=== PATIENT | female | born 1960 | race Caucasian/White ===

== ENCOUNTER 2019-01-09 10:41 | Observation (INO) ==
[2019-01-09] MEDS ORDERED: FAMOTIDINE 20 MG/2 ML VIAL IV STA (11:12)
[2019-01-09] MEDS ORDERED: DICYCLOMINE 20 MG/2 ML AMP IM ONE (11:12)
[2019-01-09] MEDS ORDERED: SODIUM CHLORIDE 0.9% 1,000 ML IV STA (11:12)
[2019-01-09] MEDS ORDERED: ONDANSETRON 4 MG/2 ML VIAL IV STA (11:12)
[2019-01-09] MEDS ORDERED: METOCLOPRAMIDE 10 MG/2 ML VIAL IV STA (11:12)
[2019-01-09] MEDS ORDERED: PHENAZOPYRIDINE 95 MG TABLET PO STA (11:12)
[2019-01-09] MEDS ORDERED: CIPROFLOXACIN INJ 400 MG in PREMIX 1 EACH IV STA (12:08)
[2019-01-09] MEDS ORDERED: metroNIDAZOLE INJ 500 MG in PREMIX 1 EACH IV STA (12:08)
[2019-01-09 12:11] LABS: Basophils % 0.2 % (0.0-0.8); Eosinophils % 0.3 % (0.00-10.9); Hematocrit 49.7 VOL% (35.7-47.0); Hemoglobin 16.9 GM/DL (12.0-16.0); Immature Granulocytes % 0.3 %; Immature Granulocytes Absolute 0.03 #; Lymphocytes # 2.3 10*3/uL (1.4-4.0); Lymphocytes % 22.5 % (21.3-54.2); Mean Platelet Volume 10.6 FL (9.6-12.0); Monocytes % 6.2 % (1.7-12.7); Neutrophils % 70.5 % (38.7-73.9); Platelet Count 276 T/CUMM (130-400); Red Blood Count 5.78 MC/CUMM (3.8-5.5); Red Cell Distribution Width 12.7 % (9.3-17.3); White Blood Count 10.4 T/CUMM (4-12)
[2019-01-09 12:32] LABS: Apearance,Urine Slightly Hazy (Clear); Bacteria,Urine Occasional /HPF (Few); Bilirubin,Urine Negative (Negative); Blood, Urine Moderate mg/dL (Negative); Glucose,Urine (UA) Negative (Negative); Ketones,Urine Negative (Negative); Mucus,Urine Occasional /LPF (Occasional); Nitrite,Urine Negative (Negative); Protein,Urine Negative; RBC,Urine 10 /HPF (0-4); Squamous Epithelial Cell,Urine Moderate /HPF (0-10); Transitional Epi Cells,Urine Occasional /HPF (<1); Urine Color Yellow (Yellow); Urine Specific Gravity 1.017 (1.001-1.035); Urine Urobilinogen < 2.0 EU/DL (0.2-1.0); WBC,Urine 31 /HPF (0-6)
[2019-01-09 12:37] LABS: Alanine Aminotransferase 39 U/L (13-56); Albumin 4.3 G/DL (3.4-5.0); Alkaline Phosphatase 65 U/L (45-117); Amylase 58 U/L (25-115); Aspartate Amino Transferase 21 U/L (0-37); Blood Urea Nitrogen 18 MG/DL (7-18); Calcium 9.2 MG/DL (8.5-10.1); Glucose 119 MG/DL (74-106); Osmolality,Calculated 279.5 MOS/KG (273-304); Total Protein 7.8 G/DL (6.4-8.3); Troponin I < 0.015 NG/ML (0.00-0.045)
[2019-01-09] MEDS ORDERED: ONDANSETRON 4 MG/2 ML VIAL IV PRN (13:54)
[2019-01-09] MEDS ORDERED: POTASSIUM CHLORIDE RIDER 10 MEQ in PREMIX 1 EACH IV PRN (13:54)
[2019-01-09] MEDS ORDERED: MAGNESIUM SULF RIDER 2 GM in PREMIX 1 EACH IV PRN (13:54)
[2019-01-09] MEDS ORDERED: MAGNESIUM SULF RIDER 4 GM in PREMIX 1 EACH IV PRN (13:54)
[2019-01-09] MEDS ORDERED: PROMETHAZINE 25 MG/1 ML VIAL IM PRN (13:54)
[2019-01-09] MEDS ORDERED: HYDROmorphone 2 MG/1 ML VIAL IV PRN (13:54)
[2019-01-09] MEDS ORDERED: ZALEPLON 5 MG CAPSULE PO PRN (14:08)
[2019-01-09] MEDS ORDERED: diphenhydrAMINE CAP 25 MG CAPSULE PO PRN (14:08)
[2019-01-09] MEDS ORDERED: guaiFENesin/DM ER 600-30 MG TABLET PO PRN (14:08)
[2019-01-09 15:05] LABS: Risk Ratio 6.77; VLDL CHOLESTEROL 37.4 MG/DL
[2019-01-09] MEDS: NICOTINE 21 MG/24 HR PATCH TRANSDERM SCH (17:54)
[2019-01-09] MEDS: SODIUM CHLORIDE 0.45% 1,000 ML IV SCH (17:54)
[2019-01-09] MEDS: ALBUTEROL/IPRATROPIUM 3 ML NEB RESP TX SCH (19:46)
[2019-01-09] MEDS: METOPROLOL SUCCINATE XL 25 MG TABLET PO SCH (21:32)
[2019-01-09] MEDS: CLOPIDOGREL 75 MG TABLET PO SCH (21:32)
[2019-01-09] MEDS: SIMVASTATIN 80 MG TABLET PO SCH (21:32)
[2019-01-09] MEDS: EZETIMIBE 10 MG TABLET PO SCH (21:32)
[2019-01-09] MEDS: FLUTICASONE/SALMETEROL 250-50 DISKUS 14 DOSE INH SCH (21:33)
[2019-01-09] MEDS: AMPICILLIN/SULBACTAM 3,000 MG in SODIUM CHLORIDE 0.9% 100 ML IV SCH (21:34)
[2019-01-10] MEDS: ALBUTEROL/IPRATROPIUM 3 ML NEB RESP TX SCH ×4 (01:40→20:56)
[2019-01-10] MEDS: AMPICILLIN/SULBACTAM 3,000 MG in SODIUM CHLORIDE 0.9% 100 ML IV SCH ×4 (02:22→20:44)
[2019-01-10 04:08] LABS: Basophils % 0.3 % (0.0-0.8); Eosinophils # 0.1 10*3/uL (0.0-0.87); Eosinophils % 1.4 % (0.00-10.9); Hematocrit 42.3 VOL% (35.7-47.0); Hemoglobin 14.6 GM/DL (12.0-16.0); Immature Granulocytes % 0.3 %; Immature Granulocytes Absolute 0.03 #; Lymphocytes # 2.8 10*3/uL (1.4-4.0); Mean Corpuscular HGB Conc 34.5 GM/DL (32-36); Mean Corpuscular Volume 87.8 FL (87-102); Mean Platelet Volume 11.1 FL (9.6-12.0); Monocytes % 8.9 % (1.7-12.7); Neutrophils % 58.1 % (38.7-73.9); Platelet Count 220 T/CUMM (130-400); Red Blood Count 4.82 MC/CUMM (3.8-5.5); Red Cell Distribution Width 12.9 % (9.3-17.3)
[2019-01-10] MEDS: SODIUM CHLORIDE 0.45% 1,000 ML IV SCH ×3 (04:30→21:43)
[2019-01-10 04:37] LABS: Albumin 3.4 G/DL (3.4-5.0); Bilirubin,Total 0.4 MG/DL (0.2-1.0); Calcium 8.8 MG/DL (8.5-10.1); Osmolality,Calculated 282.1 MOS/KG (273-304); Total Protein 6.3 G/DL (6.4-8.3)
[2019-01-10] MEDS ORDERED: ACETAMINOPHEN 325 MG TABLET PO ONE (06:16)
[2019-01-10] MEDS: NICOTINE 21 MG/24 HR PATCH TRANSDERM SCH (08:19)
[2019-01-10] MEDS: FLUTICASONE/SALMETEROL 250-50 DISKUS 14 DOSE INH SCH ×2 (08:19→20:43)
[2019-01-10] MEDS: ASPIRIN EC 81 MG TABLET PO SCH (08:19)
[2019-01-10] MEDS: PANTOPRAZOLE 40 MG VIAL IV SCH (08:19)
[2019-01-10] MEDS ORDERED: GENTAMICIN INJ 80 MG in PREMIX 1 EACH IV ONE (11:34)
[2019-01-10] MEDS: SIMVASTATIN 80 MG TABLET PO SCH (20:43)
[2019-01-10] MEDS: METOPROLOL SUCCINATE XL 25 MG TABLET PO SCH (20:43)
[2019-01-10] MEDS: CLOPIDOGREL 75 MG TABLET PO SCH (20:43)
[2019-01-10] MEDS: EZETIMIBE 10 MG TABLET PO SCH (20:43)
[2019-01-11] MEDS: ALBUTEROL/IPRATROPIUM 3 ML NEB RESP TX SCH ×2 (00:59→07:20)
[2019-01-11] MEDS: AMPICILLIN/SULBACTAM 3,000 MG in SODIUM CHLORIDE 0.9% 100 ML IV SCH ×2 (02:06→08:37)
[2019-01-11 04:58] LABS: Basophils % 0.2 % (0.0-0.8); Eosinophils # 0.1 10*3/uL (0.0-0.87); Eosinophils % 0.9 % (0.00-10.9); Hematocrit 39.9 VOL% (35.7-47.0); Hemoglobin 13.8 GM/DL (12.0-16.0); Immature Granulocytes % 0.2 %; Immature Granulocytes Absolute 0.02 #; Lymphocytes # 2.3 10*3/uL (1.4-4.0); Lymphocytes % 27.7 % (21.3-54.2); Mean Corpuscular HGB Conc 34.6 GM/DL (32-36); Mean Corpuscular Volume 86.2 FL (87-102); Monocytes % 8.3 % (1.7-12.7); Neutrophils % 62.7 % (38.7-73.9); Platelet Count 202 T/CUMM (130-400); Red Blood Count 4.63 MC/CUMM (3.8-5.5); Red Cell Distribution Width 12.8 % (9.3-17.3); White Blood Count 8.2 T/CUMM (4-12)
[2019-01-11 05:11] LABS: Albumin 3.5 G/DL (3.4-5.0); Bilirubin,Total 0.6 MG/DL (0.2-1.0); Calcium 8.7 MG/DL (8.5-10.1); Osmolality,Calculated 287.6 MOS/KG (273-304); Total Protein 6.1 G/DL (6.4-8.3)
[2019-01-11 07:15] VITALS: BP 90/55
[2019-01-11] MEDS: FLUTICASONE/SALMETEROL 250-50 DISKUS 14 DOSE INH SCH (08:36)
[2019-01-11] MEDS: PANTOPRAZOLE 40 MG VIAL IV SCH (08:37)
[2019-01-11] MEDS: ASPIRIN EC 81 MG TABLET PO SCH (08:37)
[2019-01-11] MEDS: NICOTINE 21 MG/24 HR PATCH TRANSDERM SCH (08:37)
[2019-02-17] MEDS ORDERED: BISACODYL 5 MG TABLET PO ONE (12:00)
[2019-02-17] MEDS ORDERED: POLYETHYLENE GLYCOL POWDER 255 GM BOTTLE PO ONE (18:00)
== END 2019-01-11 10:50 | disposition home or self-care (01) ==
LOC: N.ED 10:41 → N.EDINP 10:41 → N.2E 14:59
PROVIDERS: ADMIT Hospitalist; ATTEND Hospitalist